=== PATIENT | male | born 1975 | race African-American/Black ===

== ENCOUNTER 2016-05-04 15:30 | Emergency (ER) | payer OTHER ==
[~2016-05-04] VITALS: Ht 180.3 cm
[~2016-05-04 15:30] MED LIST: ALBUTEROL SULF8.5 GM IH; AUGMENTIN875 MG PO; BACTRIM,SEPT1 TABLET PO; HYDROCORTISONE28 GM TP; MEDROL DOSEPAK4 MG PO; MOTRIN800 MG PO; NAPROSYN500 MG PO; NORCO 7.5/321 TABLET PO; OMEGA-31000 M1 PO; PHENERGAN-CODE120 ML PO; PROVENTIL2.5 MG/3 M IH; VICODIN 5-3001 EACH PO; ZOFRAN4 MG PO
[2016-05-04 16:37] LABS: ADD MIUA? NO; BILIRUBIN NEGATIVE; BLOOD NEGATIVE; COLOR DK YELLOW ((YELLOW)); GLUCOSE (STRIP) NEGATIVE; KETONES TRACE; LEUKOCYTES NEGATIVE; NITRITE NEGATIVE; PROTEIN (STRIP) 30; SPECIFIC GRAVITY 1.031 (1.000-1.030); UCUL ADDED? NO; UROBILINOGEN 0.2 MG/DL (0.2-1.0)
[2016-05-04 16:49] LABS: HEMATOCRIT 43.2 % (38.0-50.0); MCH 29.5 PG (29.0-34.0); MCV 86.6 FL (86-99); MEAN PLAT.VOLUME 11.5 uM^3 (9.0-12.4); PLATELET COUNT 124 K/uL (156-360); RBC DIS.WIDTH-CV 13.6 % (11.8-14.6); RBC DIS.WIDTH-SD 42.3 % (39-53); RED BLOOD COUNT 4.99 M/uL (4.00-5.50); WHITE BLOOD COUNT 6.9 K/uL (4.1-10.2)
[2016-05-04 16:56] LABS: CHLORIDE 108 mEq/L (99-109); POTASSIUM 3.9 mEq/L (3.7-5.4); SODIUM 139 mEq/L (136-147)
[2016-05-04 16:58] LABS: GLUCOSE 108 mg/dL (70-99)
[2016-05-04 17:00] LABS: ANION GAP 10 MEQ/L (2-14); TOTAL BILIRUBIN 0.9 mg/dL (0.0-1.0)
[2016-05-04 17:02] LABS: ALKALINE PHOSPHATASE 53 IU/L (3-129); GFR ESTIMATE (CALCULATED) > 59 mL/min/
[2016-05-04 17:03] LABS: UREA NITROGEN (BUN) 14 mg/dL (9-23)
[2016-05-04] MEDS ORDERED: ULTRAM50 MG PO (19:07)
[2016-05-04] MEDS ORDERED: ZOFRAN ODT4 MG PO (19:07)
[2016-05-04 19:23] VITALS: BP 122/61
== END 2016-05-04 19:24 | disposition home or self-care (01) ==
LOC: RME 15:30 → EME 15:30 → RME 19:24
DX: R10.12 Left upper quadrant pain (principal); R19.7 Diarrhea, unspecified; R11.10 Vomiting, unspecified; J45.909 Unspecified asthma, uncomplicated; Z88.1 Allergy status to other antibiotic agents; Z88.8 Allergy status to other drugs, medicaments and biological substances
CPT/HCPCS: 74000; 80053; 81003; 85027; 99281; 99284

== ENCOUNTER 2017-04-04 20:22 | Emergency (ER) | payer OTHER ==
[~2017-04-04] VITALS: Ht 180.3 cm; Wt 78.2 kg
[~2017-04-04 20:22] MED LIST changes: +ULTRAM50 MG PO; +ZOFRAN ODT4 MG PO
[2017-04-04 21:21] LABS: HEMATOCRIT 42.8 % (38.0-50.0); MCH 29.4 PG (29.0-34.0); MCHC 32.9 G/DL (30.0-36.0); MCV 89.4 FL (86-99); MEAN PLAT.VOLUME 11.5 uM^3 (9.0-12.4); PLATELET COUNT 140 K/uL (156-360); RBC DIS.WIDTH-CV 13.2 % (11.8-14.6); RBC DIS.WIDTH-SD 43.7 % (39-53); RED BLOOD COUNT 4.79 M/uL (4.00-5.50); WHITE BLOOD COUNT 4.8 K/uL (4.1-10.2)
[2017-04-04 21:32] LABS: CHLORIDE 106 mEq/L (99-109); POTASSIUM 3.9 mEq/L (3.7-5.4); SODIUM 142 mEq/L (136-147)
[2017-04-04 21:33] LABS: GLUCOSE 92 mg/dL (70-99)
[2017-04-04 21:35] LABS: ANION GAP 11 MEQ/L (2-14)
[2017-04-04 21:37] LABS: GFR ESTIMATE (CALCULATED) > 59 mL/min/
[2017-04-04 21:38] LABS: UREA NITROGEN (BUN) 14 mg/dL (9-23)
[2017-04-04 22:24] LABS: TROP-I INTERPRETATION NEGATIVE; TROPONIN-I < 0.01 ng/mL (0.0-0.30)
[2017-04-04] MEDS ORDERED: PREDNISONE20 MG PO (22:29)
[2017-04-04] MEDS ORDERED: ZITHROMAX Z-PA250 MG PO (22:37)
[2017-04-04 22:47] VITALS: BP 137/83
== END 2017-04-04 22:48 | disposition home or self-care (01) ==
LOC: EME 20:22 → EXP 20:22
DX: J40 Bronchitis, not specified as acute or chronic (principal); M94.0 Chondrocostal junction syndrome [Tietze]; Z88.1 Allergy status to other antibiotic agents
CPT/HCPCS: 71020; 80048; 84484; 85027; 93005; 99281; 99284; J7512